=== PATIENT | male | born 1985 | race Caucasian/White ===

== ENCOUNTER → 2021-04-18 | Outpatient (CLI) | payer BC, OTHER ==
[2021-04-18 16:09] LABS: SEMEN VOLUME 2.3 ML (1.5-5.0)
== END ==
LOC: LAB 14:26
PROVIDERS: ATTEND Urology
DX: N46.9 Male infertility, unspecified (principal)
CPT/HCPCS: 89320

== ENCOUNTER → 2021-05-17 | Outpatient (CLI) | payer SELFPAY ==
[2021-05-17 15:36] LABS: SEMEN VOLUME 2.5 ML (1.5-5.0)
== END ==
LOC: LAB
PROVIDERS: ATTEND Urology
DX: N46.9 Male infertility, unspecified (principal)
CPT/HCPCS: 89320